=== PATIENT | female | born 1995 | race Caucasian/White ===

== ENCOUNTER 2020-10-15 09:52 | Emergency (ER) | payer OTHER ==
[~2020-10-15] VITALS: Ht 170.2 cm; Wt 54.4 kg
[2020-10-15] MEDS ORDERED: PROTONIX40 MG (10:04)
[2020-10-15] MEDS ORDERED: AMOX1TAB5 PO (14:46)
[2020-10-15] MEDS ORDERED: KETO10TA2 PO (14:46)
== END 2020-10-15 14:50 | disposition home or self-care (01) ==
LOC: ER 09:52
DX: R53.81 Other malaise (principal); R53.1 Weakness